=== PATIENT | female | born 1950 ===

== ENCOUNTER 2023-04-12 11:38 | Inpatient (IN) | payer OTHER ==
[~2023-04-12] VITALS: Ht 152.4 cm; Wt 62.6 kg
[2023-04-13] MEDS ORDERED: MULTIVIT PO (14:59)
[2023-04-19] MEDS ORDERED: CENTRUM ADULTS1 EACH (07:54)
[2023-04-22] MEDS ORDERED: HYOSCYAMINE0.125 M1 SL (12:18)
[2023-04-22] MEDS ORDERED: PAIN RELIEVER500 M2 PO (12:19)
[2023-04-22] MEDS ORDERED: SIMETHICONE125 M1 PO (12:20)
[2023-04-22] MEDS ORDERED: GABAPENTIN300 MG PO (12:20)
[2023-04-22] MEDS ORDERED: POLY119PG PO (12:21)
== END 2023-04-22 15:18 | disposition home or self-care (01) | DRG 331 ==
LOC: O/R 04-19 05:36 → SURG 04-19 07:00 → SURH 04-19 21:29 → SURG 04-19 21:52
PROVIDERS: ADMIT Surgery; ATTEND Surgery
PROC: 0DTN4ZZ Resection of Sigmoid Colon, Percutaneous Endoscopic Approach (ICD-10-PCS; 2023-04-19)
PROC: 8E0W4CZ Robotic Assisted Procedure of Trunk Region, Percutaneous Endoscopic Approach (ICD-10-PCS; 2023-04-19)
PROC: 0DQP4ZZ Repair Rectum, Percutaneous Endoscopic Approach (ICD-10-PCS; principal; 2023-04-19 07:00)
DX: K62.3 Rectal prolapse (principal); K63.4 Enteroptosis; K57.30 Diverticulosis of large intestine without perforation or abscess without bleeding
CPT/HCPCS: 44204; 45402; S2900